=== PATIENT | female | born 1965 | race Caucasian/White ===

== ENCOUNTER → 2023-08-01 | Day surgery (SDC) | payer BC, OTHER ==
[~2023-08-01] MED LIST: ATORVASTATIN CA20 MG PO; BERBERINE PO; DICLOFENAC SODI75 MG PO; FARXIGA5 MG PO; FENTANYL CITRATE/PF 100MCG/2 ML INJ ONE; FIORINAL 50-321 EACH PO; FLECTOR1 EACH PO; LACTATED RINGER'S 1,000 ML ONE; LANTUS 3ML100 UNITS/ SC; LIDOCAINE HCL 2% LOCAL INJ 5 ML SDV VIAL INJ ONE; LISINOPRIL10 MG PO; LYSINE1000 MG PO; METFORMIN HCL850 MG PO; NEURONTIN100 MG PO; NEURONTIN250 MG/5 M; PROPOFOL IV EMULSION 10 MG/ML 20 ML VIAL ONE; PROPOFOL IV EMULSION 10 MG/ML 50 ML VIAL IV ONE; PROVENTIL HFA6.7 GM INH; SEVOFLURANE INHAL SOLN 250 ML PEN BTL ONE; TIZANIDINE HCL4 MG PO; TRAZODONE HCL50 MG PO; ULTRAM50 MG PO; Z.0.NAPROSYN500 MG; Z.0.TENORMIN25 MG PO; Z.0.WELLBUTRIN XL150; ZOFRAN ODT4 MG; [UNRECOGNIZED DRUG - OTHER] PO
[2023-08-01 13:57] VITALS: BP 122/74; PULSE 79; RESP 18; O2SAT 97
== END | disposition home or self-care (01) ==
LOC: OR 10:23
PROVIDERS: ATTEND Internal Medicine Gastroenterology
DX: K52.9 Noninfective gastroenteritis and colitis, unspecified (principal); K57.30 Diverticulosis of large intestine without perforation or abscess without bleeding; K63.89 Other specified diseases of intestine; K59.09 Other constipation; K64.8 Other hemorrhoids; Z71.3 Dietary counseling and surveillance; E11.9 Type 2 diabetes mellitus without complications; I10 Essential (primary) hypertension; Z71.89 Other specified counseling; E78.5 Hyperlipidemia, unspecified; J45.909 Unspecified asthma, uncomplicated; E66.9 Obesity, unspecified; F41.9 Anxiety disorder, unspecified; F32.A Depression, unspecified; Z88.1 Allergy status to other antibiotic agents; Z88.0 Allergy status to penicillin; Z88.2 Allergy status to sulfonamides; Z01.810 Encounter for preprocedural cardiovascular examination; Z79.84 Long term (current) use of oral hypoglycemic drugs; Z79.4 Long term (current) use of insulin; Z79.899 Other long term (current) drug therapy; Z68.37 Body mass index [BMI] 37.0-37.9, adult; Z86.73 Personal history of transient ischemic attack (TIA), and cerebral infarction without residual deficits
CPT/HCPCS: 36415; 45380; 82948; 93005; J2001; J2704 ×2; J3010; 45378